=== PATIENT | female | born 1985 | race African-American/Black ===

== ENCOUNTER 2017-03-07 03:56 | Emergency (ER) | payer MEDICAID ==
[~2017-03-07] VITALS: Ht 165.1 cm; Wt 81.0 kg
[2017-03-07] MEDS ORDERED: KETOROLAC 60MG/2ML VIAL IM ONE (06:30)
[2017-03-07 06:35] VITALS: BP 128/81
== END 2017-03-07 09:00 | disposition home or self-care (01) ==
LOC: ER 04:01
DX: J02.9 Acute pharyngitis, unspecified (principal); H92.02 Otalgia, left ear
CPT/HCPCS: 81025; 87070; 87430; 96372; 99284; J1885